=== PATIENT | male | born 1955 | race Caucasian/White ===

== ENCOUNTER 2021-03-30 13:39 | Outpatient (CLI) | payer MEDICARE, OTHER, SELFPAY ==
--- NOTE | 2021-03-30 15:04 | ECG_ITS ---
Measurements Intervals [place] Rate: 75 P: 35 [place]: 195 QRS: 63 QRSD: 102 T: 48 QT: 395 QTc: 442 Interpretive Statements SINUS RHYTHM BORDERLINE R WAVE PROGRESSION, ANTERIOR LEADS BASELINE ARTIFACT- II, III, AVF, V6 BORDERLINE ECG Electronically Signed On 03-30-2021 16:15:34 CDT by Kristian Newton D.O.
[2021-03-30 15:34] LABS: Basophils Absolute Auto 0.1 K/mm3 (0.0-0.1); Basophils Percent Auto 0.7 % (0.2-1.2); Eosinophils Absolute Auto 0.3 K/mm3 (0-0.3); Hematocrit 46.5 % (42.0-52.0); Hemoglobin 15.5 g/dL (14.0-18.0); Immature Granulocyte Absolute 0.02 K/mm3 (0.00-0.031); Immature Granulocyte Percent A 0.3 % (0-0.5); Lymphocytes Percent Auto 17.9 % (18.3-44.2); Mean Corpuscular HGB Conc 33.3 g/dl (32-36); Mean Corpuscular Hemoglobin 31.3 pg (26-34); Mean Corpuscular Volume 93.8 fl (80-100); Mean Platelet Volume 12.7 fl (7.4-10.4); Monocytes Absolute Auto 0.6 K/mm3 (0.1-0.6); Monocytes Percent Auto 8.4 % (2.6-8.5); Neutrophils Percent Auto 68.7 % (45.5-73.1); Platelet Count Result 108 k/mm3 (150-375); Red Blood Count 4.96 M/mm3 (4.6-6.20); Red Cell Distribution Width 13.5 % (11.5-14.5); White Blood Count 7.3 K/mm3 (4.5-10.0)
[2021-03-30 15:44] LABS: Albumin Level 4.6 g/dL (3.5-5.1)
[2021-03-30 15:48] LABS: Anion Gap 11 mmol/L (8-16); Blood Urea Nitrogen 20 mg/dL (9-20); Calcium 9.2 mg/dL (8.4-10.2); Carbon Dioxide 24 mmol/L (22-30); Chloride 104 mmol/L (98-107); Estimated Glomerular Filt Rate > 60; Glucose 105 mg/dL (65-110); Potassium 4.4 mmol/L (3.4-5.0); Sodium 139 mmol/L (137-145)
[2021-03-30 15:58] LABS: Urine Cotinine NEGATIVE
[2021-03-30 16:24] LABS: Hemoglobin A1C 5.7 % (<5.7)
== END 2021-03-30 13:40 | disposition home or self-care (01) ==
PROVIDERS: Anesthesiology; Visit Provider Orthopaedic Surgery
DX: M16.12 Unilateral primary osteoarthritis, left hip (principal); E11.9 Type 2 diabetes mellitus without complications; Z01.818 Encounter for other preprocedural examination
CPT/HCPCS: 80048; 80307; 82040; 83036; 85025; 86850; 86900; 86901; 93005

== ENCOUNTER 2021-04-11 02:30 | Day surgery (SDC) | payer MEDICARE, OTHER, SELFPAY ==
[2021-03-30 14:19] VITALS: BP 128/80; PULSE 86; RESP 18; TEMP 36.6; O2SAT 97; BMI 38.3
--- NOTE | 2021-04-09 12:36 | PM.IMHP ---
H&P: HPI History of Present Illness Date/Time: 04/09/21 12:36 The patient is a 66-year-old male who presents with a chronic ongoing history of left hip pain localized to the groin radiating into the thigh. The patient's pain is worse with tip it he somewhat relieved by rest this is due to primary osteoarthritis of the left hip joint. Patient cannot stand or walk for long periods. He has start-up pain rest pain and night pain notes decreasing range of motion over time. X-rays this time do show advanced primary osteoarthritis of the left hip joint. The patient has failed conservative measures including anti-inflammatories activity modification and time, his symptoms continue he is tired of living without his discussed risks benefits limitations and alternatives of surgery in great detail with Dr. Acevedo and now like to proceed with a left total hip arthroplasty. Chief Complaint: Left hip pain due to advanced primary osteoarthritis left hip joint Review of Systems Review of Systems: All systems reviewed & are unremarkable except as noted in HPI and below PMFSH Social History Social History Smoking status: Never smoker Alcohol intake: current Drinks per week: 1 Substance use: never Additional living arrangements comments: Spiritual care concerns: No Meds Home Medications and Allergies Home Medications Medication Instructions Recorded Confirmed Type ascorbic acid (vitamin C) 1 g PO DAILY 03/30/21 03/30/21 History aspirin [Aspir-81] 162 mg PO QPM 03/30/21 03/30/21 History atenolol 25 mg PO QPM 03/30/21 03/30/21 History cholecalciferol (vitamin D3) 50 mcg PO DAILY 03/30/21 03/30/21 History dulaglutide [Trulicity] 1.5 mg SUBCUT WEEKLY 03/30/21 03/30/21 History fluticasone propionate 1 spray INTRANASAL QPM PRN 03/30/21 03/30/21 History gabapentin 300 mg PO QACDINNER 03/30/21 03/30/21 History gabapentin 600 mg PO HS 03/30/21 03/30/21 History hydrochlorothiazide 12.5 mg PO QAM PRN 03/30/21 03/30/21 History latanoprost 1 drp RIGHT EYE HS 03/30/21 03/30/21 History simvastatin 40 mg PO HS 03/30/21 03/30/21 History tamsulosin 0.4 mg PO QAM 03/30/21 03/30/21 History valsartan 80 mg PO QPM 03/30/21 03/30/21 History Allergies Allergy/AdvReac Type Severity Reaction Status Date / Time brimonidine Allergy ULCERS ON Verified 03/30/21 14:08 EYE Exam Narrative: On exam the patient is noted be a well-developed well-nourished male no acute distress he is alert oriented x3. Normal mood and affect. Noted be 5 ft 11 in tall 265 lb with a BMI of 37. Hearing and vision are intact. Respiratory is good no distress. Pulse regular rate rhythm. Abdomen benign. Extremities showed the patient's left hip to be painful with manipulation range of motion. The patient has a positive Stinchfield positive EL exam and pain with extremes of motion with limited internal external rotation ridge reproduce his symptoms as well. He walks with a limp because of his left hip pain neurovascular is intact. Skin is intact. X-rays are as above. Central nervous system exam within normal limits. Assessment and Plan Additional Plan By previous x-ray and exam the patient is noted to have advanced primary osteoarthritis left hip joint. The patient has discussed risks benefits limitations and alternatives to surgery in great detail with Dr. Acevedo, the patient is now ready to proceed with a left total hip arthroplasty. The patient is scheduled to undergo surgery 04/11/2021 at [facility] with Dr. Acevedo. The patient voiced understanding and agrees with the above plan.
[2021-04-11] VITALS (15 sets, daily range): BP systolic 94–122; BP diastolic 46–69; PULSE 54–78; RESP 8–20; TEMP 35.7–36.7; O2SAT 94–100
--- NOTE | ~2021-04-11 | XR_ITS ---
EXAMINATION: XR surgery orthopedic DATE: 04/11/2021 09:24 INDICATION: Intraoperative evaluation during left total hip arthroplasty TECHNIQUE: 2 frontal views of the left hip were obtained. COMPARISON: None. FINDINGS: Intraoperative image during a left total hip arthroplasty demonstrate placement of an acetabular comp onent which appears in near anatomic alignment on the single image provided and which is affixed with at least 2 screws. On the initial image a femoral broach is in place with the proximal tip centered over the acetabular component. This is been completed on the second image with placement of a nonceme nted femoral component. Alignment of the arthroplasty appears near anatomic on the frontal projection . Portions of the pelvis are obscured by a bolster. No fractures in the visualized bones. IMPRESSION: 1. Expected appearance during left total hip arthroplasty. Reviewed, dictated and finalized at location A.
[2021-04-11] MEDS: ACETAMINOPHEN 500 MG TABLET 1000 MG PO (06:22)
[2021-04-11] MEDS: LACTATED RINGERS 1,000 ML 30 ML IV CONT ×2 (06:30→09:49)
[2021-04-11 06:38] LABS: Glucose Point of Care 96 mg/dl (65-105)
[2021-04-11] MEDS: TRANEXAMIC ACID 1,000MG/ISO100 1,000 MG/100 ML BAG 200 MG IVPB (06:45)
--- NOTE | 2021-04-11 07:07 | WPDANESEPPF ---
Anes - Initial Pre Proc Eval Procedure: Operation Date: 04/11/21 07:30 Proposed Procedures p Left Total Hip Arthroplasty - J Luis Acevedo MD Date/Time: 04/11/21 07:07 Surgeon: J Luis Acevedo MD Pre Op Diagnosis: OA left hip Patient Data Age: 66 Gender: M Height: 1.78 m Weight: 121.3 kg Last Vital Signs Temp 36.1 C L 04/11/21 06:10 Pulse 75 04/11/21 06:10 Resp 20 04/11/21 06:10 BP 122/69 04/11/21 06:10 Pulse Ox 97 04/11/21 06:10 Allergies Allergy/AdvReac Type Severity Reaction Status Date / Time brimonidine Allergy ULCERS ON Verified 04/11/21 06:20 EYE Home Medications Medication Instructions Recorded Confirmed Type ascorbic acid (vitamin C) 1 g PO DAILY 03/30/21 04/11/21 History aspirin [Aspir-81] 162 mg PO QPM 03/30/21 04/11/21 History atenolol 25 mg PO QPM 03/30/21 04/11/21 History cholecalciferol (vitamin D3) 50 mcg PO DAILY 03/30/21 04/11/21 History dulaglutide [Trulicity] 1.5 mg SUBCUT WEEKLY 03/30/21 04/11/21 History fluticasone propionate 1 spray INTRANASAL QPM PRN 03/30/21 04/11/21 History gabapentin 300 mg PO QACDINNER 03/30/21 04/11/21 History gabapentin 600 mg PO HS 03/30/21 04/11/21 History hydrochlorothiazide 12.5 mg PO QAM PRN 03/30/21 04/11/21 History latanoprost 1 drp RIGHT EYE HS 03/30/21 04/11/21 History simvastatin 40 mg PO HS 03/30/21 04/11/21 History tamsulosin 0.4 mg PO QAM 03/30/21 04/11/21 History valsartan 80 mg PO QPM 03/30/21 04/11/21 History Laboratory Tests 04/11/21 06:36 POC Capillary Glucose 96 mg/dl mg/dl (65-105) Patient hx anesthesia problems: none Family hx anesthesia problems: none Results Review: All pre-operative results and documents have been reviewed as part of the pre-operative evaluation. PMFSH Past Medical History Medical History (Updated 04/11/21 @ 07:08 by Richard Ibanez MD) Diabetes Hyperlipidemia Hypertension Neuropathy Social History Social History Smoking status: Never smoker Alcohol intake: current Drinks per week: 1 Substance use: never Living arrangements: with family Additional living arrangements comments: Spiritual care concerns: No Anes - Eval Final PreProcedure Day of Procedure 04/11/21 07:07 Patient weight: obese Heart: regular rate and rhythm Lungs: clear to auscultation Airway: Mallampati scale class II Neurological: alert and oriented Last oral intake: >/= 8 hours ASA classification: III Emergent: no Anesthetic plan: proceed Anesthesia type and monitoring: general ETT and standard monitoring Results Review: All pre-operative results and documents have been reviewed as part of the pre-operative evaluation. Informed Consent: The patient's anesthetic plan and its attendant risks and benefits were discussed with the patient/family/POA. Questions were solicited and answers provided to the satisfaction of the patient/family/POA.
--- NOTE | 2021-04-11 07:09 | WPDHPUPDATE1 ---
History and Physical Update Update Date/Time: 04/11/21 07:09 History and Physical has been reviewed, including an updated exam of the patient. There are NO changes in the patient's condition. Risks, benefits, and alternatives have been discussed and questions answered. Patient agrees to proceed with procedure.
[2021-04-11] MEDS: ceFAZolin 3 GM/D5W 100 ML 100 ML IVPB (07:39)
--- NOTE | 2021-04-11 09:27 | W.PM.PROC2 ---
Procedure Note - Detailed Date of Procedure 04/11/21 Pre-op Diagnosis OA left hip Post-op Diagnosis same Procedure Performed [Left] total hip arthroplasty Surgeon J Luis Acevedo MD Audio Visual Secretary Frank Ramírez Anesthesia general Description of Procedure Patient was brought to the operating room and anesthetic was administered. The patient was placed with the [Left] up and steriley prepped and draped in the usual manner. Longitudinal incision was done, dissection carried down to the fascia. A Hardinge type approach was used and the femoral head was dislocated anteriorly. Femoral head was removed a finger breath above the lesser trochanter. The acetabulum was serially reamed to accept a [54] component. This was impacted into place and secured with 2 25mm screws. A high wall liner was placed. The femur was reamed and broached to accept a [10] component which was impacted into place. A plus [6] ball and neck were placed and the hip was put through full range of motion. The hip was noted to be stable. The wounds were then closed in a layer fashion using #5 ethibond, 2 vicryl, 2-0 vicryl and nesha. Patient left the operating room in satisfactory condition. Estimated Blood Loss 600 Drains No Packing No Pathology none sent Complications No immediate complications Condition stable Disposition PACU
[2021-04-11 09:59] LABS: Glucose Point of Care 190 mg/dl (65-105)
[2021-04-11 10:33] LABS: Hematocrit 39.2 % (42.0-52.0)
--- NOTE | 2021-04-11 11:21 | ADMGEN ---
This patient, Kevyn Walls, was admitted to Medical Room 254-01. Patient/family oriented to hospital policies and general routines including ID bracelet, bed and alarms, visiting hours, pain management, procedures, bathroom and other care routines, personal items, smoking policy, room service/diet, and visiting hours. Information on how to activate the Rapid Response Team has been discussed. Patient/Family are encouraged to report perceived risks to care and to ask questions if they do not understand what they are told or what they should do.
[2021-04-11 12:52] LABS: Glucose Point of Care 214 mg/dl (65-105)
[2021-04-11] MEDS: HYDROcodone/acetaminophen (*CRX) 5-325 MG TABLET 2 TAB PO (13:41)
[2021-04-11] MEDS: ceFAZolin 2 GM/D5W 50 ML 2 GM/50 ML BAG IVPB (15:04)
[2021-04-11 17:10] LABS: Glucose Point of Care 212 mg/dl (65-105)
[2021-04-11] MEDS: GABAPENTIN 300 MG CAPSULE PO (17:14)
[2021-04-11] MEDS: DOCUSATE SODIUM 100 MG CAPSULE PO (17:14)
[2021-04-11] MEDS: RIVAROXABAN 10 MG TABLET PO (17:14)
[2021-04-11] MEDS: ASPIRIN 81 MG ENTERIC TABLET 162 MG PO (17:15)
[2021-04-11] MEDS: atenoloL 25 MG TABLET PO (17:15)
[2021-04-11] MEDS: VALSARTAN 80 MG TABLET PO (17:15)
[2021-04-11] MEDS: INSULIN ASPART (*BKC) 100 UNITS/ML SUB-Q (18:03)
--- NOTE | 2021-04-11 19:01 | PM.IMHP ---
H&P: HPI History of Present Illness Date/Time: 04/11/21 19:01 This is a 66-year-old male patient who has a past medical history of severe osteoarthritis to his left hip. The patient has had both of his knees replaced in the past and has done very well with those. The patient has chronic ongoing history of left hip pain that was localized to the groin radiating into the thigh. the patient's pain to the left hip was somewhat relieved with rest. Patient has start-up pain and nocturnal pain. He also had decreasing range of motion over time. X-rays did show advanced primary osteoarthritis of the left hip joint. The patient stated that he was scheduled last month but had to be rescheduled due to the pandemic. The patient was Been having difficulty standing for long periods of time and has failed conservative measures. He had attempted anti-inflammatory treatment, activity modification and time. His symptoms remain regardless of these conservative measures. The patient agreed to proceed with a left total hip arthroplasty per Dr. Acevedo today. Please see operative note. the patient was admitted to Orthopedic Services and the hospitalist group was asked to consult for medical management. I thank the ortho team team for as allowing us to consult on this patient. The patient was consulted on 04/11/2021. Review of Systems Review of Systems: All systems reviewed & are unremarkable except as noted in HPI and below Constitutional: Constitutional: Reports as per HPI and Reports no additional constitutional complaints Eyes: Eyes: Reports as per HPI and Reports no additional eye complaints ENT: Reports system reviewed and no additional complaints, except as documented and Reports Normal hearing present Cardiovascular: Cardiovascular: Reports no additional cardiovascular complaints Respiratory: Respiratory: Reports no additional respiratory complaints and Reports no additional respiratory complaints Gastrointestinal: Gastrointestinal: Reports as per HPI and Reports no additional gastrointestinal complaints Musculoskeletal: Musculoskeletal: Reports no additional musculoskeletal complaints Integumentary/Breasts: Skin/Breast: Reports system reviewed and no additional complaints, except as docu and Reports as per HPI Neurologic: Reports system reviewed and no additional complaints, except as documented, Reports as per HPI and Reports Normal hearing present Psychiatric: Psychiatric: Reports no additional psychiatric complaints and Reports as per HPI Endocrine: Endocrine: Reports no additional endocrine complaints Hematologic/Lymphatic: Hematologic/Lymphatic: Reports no additional hematologic/lymphatic complaints Allergic/Immunologic: Allergic/Immunologic: Reports no additional allergic/immunologic complaints [facility] Past Medical History Medical History (Updated 04/11/21 @ 07:08 by Richard Ibanez MD) Diabetes Hyperlipidemia Hypertension Neuropathy Social History Social History Smoking status: Former smoker Alcohol intake: current Drinks per week: 2 Substance use: never Living arrangements: with family Additional living arrangements comments: Spiritual care concerns: No Meds Home Medications and Allergies Home Medications Medication Instructions Recorded Confirmed Type ascorbic acid (vitamin C) 1 g PO DAILY 03/30/21 04/11/21 History aspirin [Aspir-81] 162 mg PO QPM 03/30/21 04/11/21 History atenolol 25 mg PO QPM 03/30/21 04/11/21 History cholecalciferol (vitamin D3) 50 mcg PO DAILY 03/30/21 04/11/21 History dulaglutide [Trulicity] 1.5 mg SUBCUT WEEKLY 03/30/21 04/11/21 History fluticasone propionate 1 spray INTRANASAL QPM PRN 03/30/21 04/11/21 History gabapentin 300 mg PO QACDINNER 03/30/21 04/11/21 History gabapentin 600 mg PO HS 03/30/21 04/11/21 History hydrochlorothiazide 12.5 mg PO QAM PRN 03/30/21 04/11/21 History latanoprost 1 drp RIGHT
--- NOTE | 2021-04-11 19:10 | PM.IMCN ---
Assessment and Plan Assessment and plan (1) S/P total left hip arthroplasty: Code(s): Z96.642 - Presence of left artificial hip joint Status: Acute Assessment and Plan: postop care per Dr. Acevedo. surgical site care per Dr. Acevedo. Pain management per Dr. Acevedo. DVT prophylaxis per Dr. Acevedo. The patient is currently on Xarelto. He is also on Vicodin (2) Diabetes: Code(s): E11.9 - Type 2 diabetes mellitus without complications Status: Chronic Assessment and Plan: I am not sure if we carry Trulicity here. However it is only a once a week injection. Were going to do sliding scale insulin a.c. and HS. The patient's blood sugar was over 200 but he had already eaten. I a explained to the patient that we check him again at 9:00 a.m. or 10:00 a.m. and go from there. The patient's last known A1c was 5.7. So I did not check his A1c again. (3) Hypertension: Code(s): I10 - Essential (primary) hypertension Status: Chronic Assessment and Plan: Continue with atenolol, valsartan, and hydrochlorothiazide (4) Neuropathy: Code(s): G62.9 - Polyneuropathy, unspecified Status: Chronic Assessment and Plan: continue with gabapentin (5) BPH (benign prostatic hyperplasia): Code(s): N40.0 - Benign prostatic hyperplasia without lower urinary tract symptoms Status: Chronic Assessment and Plan: continue with Flomax (6) Hyperlipidemia: Code(s): E78.5 - Hyperlipidemia, unspecified Status: Chronic Assessment and Plan: continue with Zocor. (7) Cataracts, bilateral: Code(s): H26.9 - Unspecified cataract Status: Acute Assessment and Plan: Maturing. HPI Data of Consult Consult date: 04/11/21 Requesting Physician: J Luis Acevedo MD Primary Care Provider: PHYSICIAN NOT ON STAFF Consult Narrative Narrative: Kevyn Walls is a 66-year-old male patient who has a past medical history of severe osteoarthritis to his left hip. The patient has had both of his knees replaced in the past and has done very well with those. The patient has chronic ongoing history of left hip pain that was localized to the groin radiating into the thigh. the patient's pain to the left hip was somewhat relieved with rest. Patient has start-up pain and nocturnal pain. He also had decreasing range of motion over time. X-rays did show advanced primary osteoarthritis of the left hip joint. The patient stated that he was scheduled last month but had to be rescheduled due to the pandemic. The patient was Been having difficulty standing for long periods of time and has failed conservative measures. He had attempted anti-inflammatory treatment, activity modification and time. His symptoms remain regardless of these conservative measures. The patient agreed to proceed with a left total hip arthroplasty per Dr. Acevedo today. Please see operative note. the patient was admitted to Orthopedic Services and the hospitalist group was asked to consult for medical management. I thank the ortho team team for as allowing us to consult on this patient. The patient was consulted on 04/11/2021. Review of Systems Review of Systems: All systems reviewed & are unremarkable except as noted in HPI and below Constitutional: Constitutional: Reports as per HPI and Reports no additional constitutional complaints Eyes: Eyes: Reports as per HPI and Reports no additional eye complaints ENT: Reports system reviewed and no additional complaints, except as documented and Reports Normal hearing present Cardiovascular: Cardiovascular: Reports no additional cardiovascular complaints Respiratory: Respiratory: Reports no additional respiratory complaints and Reports no additional respiratory complaints Gastrointestinal: Gastrointestinal: Reports as per HPI and Reports no additional gastrointestinal complaints Musculoskeletal: Musculoskeletal: Re
[2021-04-11] MEDS: HYDROcodone/acetaminophen (*CRX) 7.5-325 MG TABLET 1 TAB PO (20:17)
[2021-04-11] MEDS: GABAPENTIN 300 MG CAPSULE 600 MG PO (20:20)
[2021-04-11] MEDS: SIMVASTATIN 20 MG TABLET 40 MG PO (20:20)
[2021-04-11 22:31] LABS: Glucose Point of Care 143 mg/dl (65-105)
[2021-04-12 00:44] VITALS: BP 101/51; PULSE 71; RESP 16; TEMP 36.3; O2SAT 97
[2021-04-12] MEDS: ceFAZolin 2 GM/D5W 50 ML 2 GM/50 ML BAG IVPB ×2 (00:50→08:22)
[2021-04-12 04:45] VITALS: BP 102/46; PULSE 66; RESP 16; TEMP 36.3; O2SAT 98
[2021-04-12 05:54] LABS: Basophils Percent Auto 0.4 % (0.2-1.2); Eosinophils Percent Auto 0.2 % (0-4.4); Hematocrit 33.2 % (42.0-52.0); Immature Granulocyte Absolute 0.05 K/mm3 (0.00-0.031); Immature Granulocyte Percent A 0.5 % (0-0.5); Lymphocytes Absolute Auto 0.99 K/mm3 (0.9-3.2); Lymphocytes Percent Auto 10.3 % (18.3-44.2); Mean Corpuscular HGB Conc 33.1 g/dl (32-36); Mean Corpuscular Hemoglobin 30.9 pg (26-34); Mean Corpuscular Volume 93.3 fl (80-100); Mean Platelet Volume 12.6 fl (7.4-10.4); Monocytes Absolute Auto 1.2 K/mm3 (0.1-0.6); Monocytes Percent Auto 12.7 % (2.6-8.5); Neutrophils Absolute Auto 7.3 K/mm3 (1.3-6.7); Neutrophils Percent Auto 75.9 % (45.5-73.1); Platelet Count Result 100 k/mm3 (150-375); Red Blood Count 3.56 M/mm3 (4.6-6.20); Red Cell Distribution Width 13.2 % (11.5-14.5); White Blood Count 9.6 K/mm3 (4.5-10.0)
[2021-04-12 06:06] LABS: Anion Gap 5 mmol/L (8-16); Blood Urea Nitrogen 26 mg/dL (9-20); Calcium 8.7 mg/dL (8.4-10.2); Carbon Dioxide 30 mmol/L (22-30); Chloride 101 mmol/L (98-107); Estimated CRCL calculation 71 ml/min; Estimated Glomerular Filt Rate > 60; Glucose 149 mg/dL (65-110); Sodium 136 mmol/L (137-145)
--- NOTE | 2021-04-12 07:13 | WPDANESPN ---
Anes - Prog Note Post-Op Date/Time: 04/12/21 07:13 Cardiovascular status: normal Respiratory status: normal Airway patency: baseline Mental status: baseline Post-Op hydration status: normal Vital Signs: Last Vital Signs Temp 97.4 F L 04/12/21 04:45 Pulse 66 04/12/21 04:45 Resp 16 04/12/21 04:45 BP 102/46 L 04/12/21 04:45 Pulse Ox 98 04/12/21 04:45 Pain Score (VAS): 07/09 I/O: Intake & Output 04/11/21 04/11/21 04/12/21 15:59 23:59 07:59 Intake Total 1989 240 350 Output Total 800 Balance 1989 240 -450 Laboratory Tests 04/12/21 05:36 04/12/21 05:36 04/11/21 04/11/21 04/11/21 09:56 10:23 12:49 WBC RBC Hgb 13.0 L Hct 39.2 L MCV MCH MCHC RDW Plt Count MPV Immature Gran % (Auto) Neut % (Auto) Lymph % (Auto) [place] % (Auto) Eos % (Auto) Baso % (Auto) Lymph # (Auto) [place] # (Auto) Eos # (Auto) Baso # (Auto) Abs Immat Gran (auto) Absolute Neuts (auto) Absolute Nucleated RBC Nucleated RBC % Sodium Potassium Chloride Carbon Dioxide Anion Gap BUN Creatinine Estim Creat Clear Calc Estimated GFR Glucose POC Capillary Glucose 190 H 214 H Calcium 04/11/21 04/11/21 04/12/21 17:05 22:27 05:36 WBC 9.6 RBC 3.56 L Hgb 11.0 L Hct 33.2 L MCV 93.3 MCH 30.9 MCHC 33.1 RDW 13.2 Plt Count 100 L MPV 12.6 H Immature Gran % (Auto) 0.5 Neut % (Auto) 75.9 H Lymph % (Auto) 10.3 L [place] % (Auto) 12.7 H Eos % (Auto) 0.2 Baso % (Auto) 0.4 Lymph # (Auto) 0.99 [place] # (Auto) 1.2 H Eos # (Auto) 0.0 Baso # (Auto) 0.0 Abs Immat Gran (auto) 0.05 H Absolute Neuts (auto) 7.3 H Absolute Nucleated RBC 0.0 Nucleated RBC % 0.0 Sodium Potassium Chloride Carbon Dioxide Anion Gap BUN Creatinine Estim Creat Clear Calc Estimated GFR Glucose POC Capillary Glucose 212 H 143 H Calcium 04/12/21 05:36 WBC RBC Hgb Hct MCV MCH MCHC RDW Plt Count MPV Immature Gran % (Auto) Neut % (Auto) Lymph % (Auto) [place] % (Auto) Eos % (Auto) Baso % (Auto) Lymph # (Auto) [place] # (Auto) Eos # (Auto) Baso # (Auto) Abs Immat Gran (auto) Absolute Neuts (auto) Absolute Nucleated RBC Nucleated RBC % Sodium 136 L Potassium 5.0 Chloride 101 Carbon Dioxide 30 Anion Gap 5 L BUN 26 H Creatinine 1.20 Estim Creat Clear Calc 71 Estimated GFR > 60 Glucose 149 H POC Capillary Glucose Calcium 8.7 Post-procedural complaints: none Patient Feedback: Patient satisfied with anesthetic care.
[2021-04-12 07:54] LABS: Glucose Point of Care 128 mg/dl (65-105)
[2021-04-12] MEDS: CELECOXIB 200 MG CAPSULE PO (08:21)
[2021-04-12] MEDS: CHOLECALCIFEROL 1,000 UNITS TABLET 2000 UNITS PO (08:22)
[2021-04-12] MEDS: TAMSULOSIN HCL 0.4 MG CAPSULE PO (08:22)
[2021-04-12] MEDS: DOCUSATE SODIUM 100 MG CAPSULE PO (08:22)
[2021-04-12] MEDS: ASCORBIC ACID 500 MG TABLET 1000 MG PO (08:22)
[2021-04-12 10:32] VITALS: BP 106/58; PULSE 74; RESP 16; TEMP 36.3; O2SAT 97
--- NOTE | 2021-04-12 11:10 | PM.PNORT ---
Progress Note: A&P Additional Plan Patient is doing well status post left total hip arthroplasty postop day 1. The patient is ready for discharge to home, he voiced understanding and agrees with above plan. See discharge orders. Subjective Subjective Date/Time Seen: 04/12/21 11:10 Patient seen today at bedside postop day 1 status post left total hip arthroplasty. The patient is doing very well, states pain is well controlled he is ready for discharge to home by his report. Dressing was changed today everything looked good here. He tolerated physical therapy well. Review of Systems Review of Systems: All systems reviewed & are unremarkable except as noted in HPI and below Exam Narrative: On exam today the patient has not be comfortable at bedside. He is in no acute distress pain is well controlled. Vital signs are stable is afebrile neurovascular is intact wound dressing clean and dry calves are benign no significant swelling in the thigh or leg is noted status post total hip arthroplasty. Objective Data Vital Signs Vital Signs: Vital Signs - 24 hr 04/11/21 11:25 04/11/21 11:55 04/11/21 12:55 Temperature 35.7 C L 35.8 C L 36.6 C Pulse Rate 67 71 67 Respiratory Rate 18 18 18 Blood Pressure 116/62 109/58 L 102/60 Pulse Oximetry 95 95 100 04/11/21 14:50 04/11/21 17:15 04/11/21 17:17 Temperature Pulse Rate 60 60 Respiratory Rate Blood Pressure 108/64 Pulse Oximetry 100 04/11/21 20:45 04/12/21 00:44 04/12/21 04:45 Temperature 36.7 C 36.3 C L 36.3 C L Pulse Rate 76 71 66 Respiratory Rate 16 16 16 Blood Pressure 98/54 L 101/51 L 102/46 L Pulse Oximetry 97 97 98 04/12/21 10:32 Temperature 36.3 C L Pulse Rate 74 Respiratory Rate 16 Blood Pressure 106/58 L Pulse Oximetry 97 Intake/Output Intake/Output: Intake & Output 04/09/21 04/10/21 04/11/21 04/12/21 23:59 23:59 23:59 23:59 Intake Total 2330 710 Output Total 800 Balance 2330 -90 Meds/Results Medications: Active Medications Generic Name Dose Route Start Last Admin Trade Name Freq PRN Reason Stop Dose Admin Hydrocodone Bitart/Acetaminophen 1 tab 04/11/21 11:00 04/11/21 20:17 Hydrocodone/Acetaminophen (*Crx) 7.5-325 Mg Tablet PO 1 tab Q3H PRN Administration Pain Rated 4-6 Hydrocodone Bitart/Acetaminophen 2 tab 04/11/21 11:00 04/11/21 13:41 Hydrocodone/Acetaminophen (*Crx) 5-325 Mg Tablet PO 2 tab Q6H PRN Administration Pain Rated 7-10 Ascorbic Acid 1,000 mg 04/12/21 09:00 04/12/21 08:22 Ascorbic Acid 500 Mg Tablet PO 1,000 mg DAILY STACEY Administration Aspirin 162 mg 04/11/21 18:00 04/11/21 17:15 Aspirin 81 Mg Enteric Tablet PO 162 mg QPM STACEY Administration Atenolol 25 mg 04/11/21 18:00 04/11/21 17:15 Atenolol 25 Mg Tablet PO 25 mg QPM STACEY Administration Celecoxib 200 mg 04/12/21 09:00 04/12/21 08:21 Celecoxib 200 Mg Capsule PO 200 mg DAILY STACEY Administration Dextrose 12.5 gm 04/11/21 19:07 Dextrose 50% 25 Gm/50 Ml Syringe IV PUSH PRN PRN Hypoglycemia Protocol Docusate Sodium 100 mg 04/11/21 17:00 04/12/21 08:22 Docusate Sodium 100 Mg Capsule PO 100 mg BID STACEY Administration Gabapentin 300 mg 04/11/21 17:00 04/11/21 17:14 Gabapentin 300 Mg Capsule PO 300 mg DAILY@1700 STACEY Administration Gabapentin 600 mg 04/11/21 21:00 04/11/21 20:20 Gabapentin 300 Mg Capsule PO 600 mg HS STACEY Administration Glucagon 1 mg 04/11/21 19:07 Glucagon For Inj 1 Mg Vial IM PRN PRN Hypoglycemia Protocol Glucose 15 gm 04/11/21 19:07 Glucose Oral Gel 15 Gm Of Glucse In 37.5 Gm Tube PO PRN PRN Hypoglycemia Protocol Hydrochlorothiazide 12.5 mg 04/11/21 11:00 Hydrochlorothiazide 12.5 Mg Capsule PO QAM PRN Edema Dextrose 1,000 mls @ 100 mls/hr 04/11/21 19:07 Dextrose 5% 1,000 Ml IVPB PRN PRN Hypoglycemia Protocol Insulin As
--- NOTE | 2021-04-12 11:24 | PM.DS ---
DS: Admitting Diagnosis Discharge Date April 12, 2021 Admitting Diagnosis severe primary osteoarthritis left hip joint discharge diagnosis severe primary osteoarthritis left hip joint status post total hip arthroplasty left hip joint DS: Summary Hospital Course Hospital Course: Patient was brought to the operating room on April 11, 2021 left total hip arthroplasty was performed for severe primary osteoarthritis left hip joint per Dr. Acevedo. The patient tolerated procedure well. Postop day 1 the patient was doing well vital signs are stable is afebrile neurovascular is intact wound is clean and dry calves are benign tolerated therapy well pain is well controlled. The patient was deemed stable for discharge home postop day 1 the patient voiced understanding agrees above plan. Time Spent with Patient Time attestation: Total time spent providing and/or coordinating discharge services: Exam Narrative: patient is noted to be a well-developed well-nourished male no acute distress alert oriented x3. Normal mood and affect. Left hip incision healing well clean and dry no evidence of drainage or infection at this time. Mild swelling around the thigh and incision are noted normal course for a left total hip arthroplasty. Vital signs are stable patient is afebrile her vascular the patient is intact calves are benign patient ambulating independently with a walker easily in therapy and tolerating this well. Pain is well controlled. DS: Data Data Completed and Pending Labs on day of discharge: Labs from last 24 hours 04/12/21 04/12/21 04/12/21 07:48 05:36 05:36 WBC 9.6 RBC 3.56 L Hgb 11.0 L Hct 33.2 L MCV 93.3 MCH 30.9 MCHC 33.1 RDW 13.2 Plt Count 100 L MPV 12.6 H Immature Gran % (Auto) 0.5 Neut % (Auto) 75.9 H Lymph % (Auto) 10.3 L [place] % (Auto) 12.7 H Eos % (Auto) 0.2 Baso % (Auto) 0.4 Lymph # (Auto) 0.99 [place] # (Auto) 1.2 H Eos # (Auto) 0.0 Baso # (Auto) 0.0 Abs Immat Gran (auto) 0.05 H Absolute Neuts (auto) 7.3 H Absolute Nucleated RBC 0.0 Nucleated RBC % 0.0 Sodium 136 L Potassium 5.0 Chloride 101 Carbon Dioxide 30 Anion Gap 5 L BUN 26 H Creatinine 1.20 Estim Creat Clear Calc 71 Estimated GFR > 60 Glucose 149 H POC Capillary Glucose 128 H Calcium 8.7 04/11/21 04/11/21 04/11/21 22:27 17:05 12:49 WBC RBC Hgb Hct MCV MCH MCHC RDW Plt Count MPV Immature Gran % (Auto) Neut % (Auto) Lymph % (Auto) [place] % (Auto) Eos % (Auto) Baso % (Auto) Lymph # (Auto) [place] # (Auto) Eos # (Auto) Baso # (Auto) Abs Immat Gran (auto) Absolute Neuts (auto) Absolute Nucleated RBC Nucleated RBC % Sodium Potassium Chloride Carbon Dioxide Anion Gap BUN Creatinine Estim Creat Clear Calc Estimated GFR Glucose POC Capillary Glucose 143 H 212 H 214 H Calcium Discharge Plan Discharge Patient Disposition: Home, Self-Care Activity: no shower Diet: as tolerated Wound Care Instructions: keep dressing dry and change dressing daily Discharge Instructions: patient is discharged home stable condition general diet. The patient is to be up ambulating independently with a walker touchdown weight-bearing left lower extremity. Change dressing daily keep the wound clean and dry watch for evidence of infection. The patient is to follow hip precautions for total hip protocol per physical therapy instructions. The patient is discharged with [place] 7.5 mg 1 tablet every 4 hours p.r.n. severe pain. Also discharged with Xarelto 10 mg daily for a postop course of 3 weeks, the patient will hold off on home aspirin but may resume this when the Xarelto course is complete. The patient will follow-up 2 weeks postop for staple removal and wound recheck. The patient is instructed to call the office immed
[2021-04-12 11:52] LABS: Glucose Point of Care 169 mg/dl (65-105)
[2021-04-12] MEDS: HYDROcodone/acetaminophen (*CRX) 7.5-325 MG TABLET 1 TAB PO (12:35)
== END 2021-04-12 13:45 | disposition home or self-care (01) ==
LOC: ANHSURGERY 05:57 → ANH2MED 11:07
PROVIDERS: Visit Provider Orthopaedic Surgery
PROC: (CPT 27130; principal; 2021-04-11 07:30)
DX: M16.12 Unilateral primary osteoarthritis, left hip (principal); I10 Essential (primary) hypertension; E78.5 Hyperlipidemia, unspecified; E11.40 Type 2 diabetes mellitus with diabetic neuropathy, unspecified; H26.9 Unspecified cataract; N40.0 Benign prostatic hyperplasia without lower urinary tract symptoms; Z79.82 Long term (current) use of aspirin; Z79.899 Other long term (current) drug therapy; E66.9 Obesity, unspecified; Z68.38 Body mass index [BMI] 38.0-38.9, adult; Z23 Encounter for immunization
CPT/HCPCS: 27130; 36415; 80048; 82948; 85014; 85018; 85025; 90471; 90653; 97110; 97116; 97162; 97165; 97530; A9270; C1776; G0008; J0171; J0330; J0690; J1100; J1170; J1815; J1885; J2250; J2270; J2370; J2405; J2704; J2710; J2795; J3010; J3370; J7120

== ENCOUNTER 2021-10-03 00:48 | Day surgery (SDC) | payer MEDICARE, OTHER, SELFPAY ==
[2021-09-24 12:36] VITALS: BMI 41.1
[2021-10-03 11:12] VITALS: BP 140/73; PULSE 91; RESP 18; TEMP 36.6; O2SAT 98; BMI 39.3
--- NOTE | 2021-10-03 11:17 | PM.HPGS ---
History of Present Illness History of Present Illness Consent: Risks, benefits, and alternatives have been discussed and questions answered. Patient agrees to proceed with procedure. Chief complaint: neoplasm screening Narrative: Kevyn Walls is a 66 year old male Referred for colon cancer screening. Review of Systems Review of Systems: All systems reviewed & are unremarkable except as noted in HPI and below PMFSH Past Medical History Medical History BPH (benign prostatic hyperplasia) Diabetes Hyperlipidemia Hypertension Neuropathy Surgical History Surgical History H/O inguinal hernia repair History of bilateral knee replacement Previous back surgery S/P total left hip arthroplasty Family History Family History Father Malignant neoplasm of prostate Heart disease Mother Breast cancer Lymphoma Social History Social History Social History: the patient is and lives with his . She is a durable power deputy attorney general for healthcare. The patient Only smoked for about 3 months.. 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 The patient has about 1 drink a week. He does not use any marijuana or illicit drugs. the patient has 1 child. Code status full code Years smoked: 1 Smoking status: Former smoker Tobacco type: cigarettes Alcohol intake: current Drinks per week: 2 Substance use: never Substance use type: does not use Additional living arrangements comments: Spiritual care concerns: No Meds Home Medications and Allergies Home Medications Medication Instructions Recorded Confirmed Type Trulicity 1.5 mg SUBCUT WEEKLY 03/30/21 10/03/21 History ascorbic acid (vitamin C) 1 g PO DAILY 03/30/21 10/03/21 History aspirin 81 mg PO QPM 03/30/21 10/03/21 History atenolol 25 mg PO QPM 03/30/21 10/03/21 History cholecalciferol (vitamin D3) 50 mcg PO DAILY 03/30/21 10/03/21 History fluticasone propionate 1 spray INTRANASAL QPM PRN 03/30/21 10/03/21 History gabapentin 300 mg PO QACDINNER 03/30/21 10/03/21 History gabapentin 600 mg PO HS 03/30/21 10/03/21 History hydrochlorothiazide 12.5 mg PO QAM PRN 03/30/21 10/03/21 History latanoprost 1 drp RIGHT EYE HS 03/30/21 10/03/21 History simvastatin 40 mg PO HS 03/30/21 10/03/21 History tamsulosin 0.4 mg PO QPM 03/30/21 10/03/21 History valsartan 80 mg PO QPM 03/30/21 10/03/21 History Allergies Allergy/AdvReac Type Severity Reaction Status Date / Time brimonidine Allergy ULCERS ON Verified 10/03/21 11:20 EYE ZENOBIA Inhibitors AdvReac Cough Verified 10/03/21 11:20 Exam Const: General: alert Orientation/consciousness: patient oriented x3 Resp: Auscultation: clear to auscultation bilaterally Cardio: Rhythm: regular rhythm GI: GI Palp: Yes Soft to palpation and No Tenderness to palpation present (GI) Neuro: General: patient oriented x3 Assessment and Plan Assessment and plan (1) Colon cancer screening: Code(s): Z12.11 - Encounter for screening for malignant neoplasm of colon Status: Acute Assessment and Plan: Colonoscopy with possible biopsy or polypectomy or cautery or injection of substances.
[2021-10-03] MEDS: LACTATED RINGERS 1,000 ML 150 ML IV CONT (11:36)
[2021-10-03 11:38] LABS: Glucose Point of Care 143 mg/dl (65-105)
[2021-10-03] MEDS: AMPICILLIN 2 GM/NS 100 ML 2 GM/100 ML BAG IVPB (11:38)
--- NOTE | 2021-10-03 12:08 | WPDANESEPPF ---
Anes - Initial Pre Proc Eval Procedure: Operation Date: 10/03/21 12:30 Proposed Procedures p Screening Colonoscopy - Amadou Bustamante MD Date/Time: 10/03/21 12:08 Surgeon: Amadou Bustamante MD Pre Op Diagnosis: neoplasm screening Patient Data Age: 66 Gender: M Height: 1.78 m Weight: 124.4 kg Last Vital Signs Temp 36.6 C 10/03/21 11:12 Pulse 91 10/03/21 11:12 Resp 18 10/03/21 11:12 BP 140/73 10/03/21 11:12 Pulse Ox 98 10/03/21 11:12 Allergies Allergy/AdvReac Type Severity Reaction Status Date / Time brimonidine Allergy ULCERS ON Verified 10/03/21 11:20 EYE ZENOBIA Inhibitors AdvReac Cough Verified 10/03/21 11:20 Home Medications Medication Instructions Recorded Confirmed Type Trulicity 1.5 mg SUBCUT WEEKLY 03/30/21 10/03/21 History ascorbic acid (vitamin C) 1 g PO DAILY 03/30/21 10/03/21 History aspirin 81 mg PO QPM 03/30/21 10/03/21 History atenolol 25 mg PO QPM 03/30/21 10/03/21 History cholecalciferol (vitamin D3) 50 mcg PO DAILY 03/30/21 10/03/21 History fluticasone propionate 1 spray INTRANASAL QPM PRN 03/30/21 10/03/21 History gabapentin 300 mg PO QACDINNER 03/30/21 10/03/21 History gabapentin 600 mg PO HS 03/30/21 10/03/21 History hydrochlorothiazide 12.5 mg PO QAM PRN 03/30/21 10/03/21 History latanoprost 1 drp RIGHT EYE HS 03/30/21 10/03/21 History simvastatin 40 mg PO HS 03/30/21 10/03/21 History tamsulosin 0.4 mg PO QPM 03/30/21 10/03/21 History valsartan 80 mg PO QPM 03/30/21 10/03/21 History Laboratory Tests 10/03/21 11:35 POC Capillary Glucose 143 mg/dl H mg/dl (65-105) Patient hx anesthesia problems: none Family hx anesthesia problems: none Results Review: All pre-operative results and documents have been reviewed as part of the pre-operative evaluation. [facility] Past Medical History Medical History BPH (benign prostatic hyperplasia) Diabetes Hyperlipidemia Hypertension Neuropathy Surgical History Surgical History H/O inguinal hernia repair History of bilateral knee replacement Previous back surgery S/P total left hip arthroplasty Family History Family History Father Malignant neoplasm of prostate Heart disease Mother Breast cancer Lymphoma Social History Social History Social History: the patient is and lives with his . She is a durable power park services specialist for healthcare. The patient Only smoked for about 3 months.. 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 The patient has about 1 drink a week. He does not use any marijuana or illicit drugs. the patient has 1 child. Code status full code Years smoked: 1 Smoking status: Former smoker Tobacco type: cigarettes Alcohol intake: current Drinks per week: 2 Substance use: never Substance use type: does not use Additional living arrangements comments: Spiritual care concerns: No Anes - Eval Final PreProcedure Day of Procedure 10/03/21 12:08 Patient weight: obese Heart: regular rate and rhythm Lungs: clear to auscultation Airway: Mallampati scale class II Neurological: alert and oriented Last oral intake: >/= 8 hours ASA classification: III Emergent: no Anesthetic plan: proceed Anesthesia type and monitoring: general GIVS and standard monitoring Results Review: All pre-operative results and documents have been reviewed as part of the pre-operative evaluation. Informed Consent: The patient's anesthetic plan and its attendant risks and benefits were discussed with the patient/family/POA. Questions were solicited and answers provided to the satisfaction of the patient/family/POA.
[2021-10-03 12:39] VITALS: BP 104/66; PULSE 82; RESP 24; O2SAT 96
[2021-10-03 12:49] VITALS: BP 105/64; PULSE 69; RESP 11; O2SAT 100
[2021-10-03 12:59] VITALS: BP 122/76; PULSE 69; RESP 13; O2SAT 100
== END 2021-10-03 13:05 | disposition home or self-care (01) ==
PROVIDERS: Visit Provider Internal Medicine Gastroenterology
PROC: 0DJD8ZZ Inspection of Lower Intestinal Tract, Via Natural or Artificial Opening Endoscopic (ICD-10-PCS; CPT 45378; principal; 2021-10-03 12:30)
DX: Z12.11 Encounter for screening for malignant neoplasm of colon (principal); N40.0 Benign prostatic hyperplasia without lower urinary tract symptoms; E78.5 Hyperlipidemia, unspecified; I10 Essential (primary) hypertension; E11.40 Type 2 diabetes mellitus with diabetic neuropathy, unspecified
CPT/HCPCS: G0121; 82948; J0290; J2704; J7120